=== PATIENT | female | born 1965 | race Native Hawaiian/Other Pacific Islander ===

== ENCOUNTER 2018-08-14 10:24 | Emergency (ER) | payer OTHER ==
[2018-08-14 10:50] VITALS: TEMP 97.9
[2018-08-14] MEDS ORDERED: POVIDONE IODINE 10 % 15 ML UD TOP ONE (11:11)
[2018-08-14] MEDS ORDERED: TETANUS,DIPHTHERIA,PERTUSSIS 1 EA SYG IM ONE (11:11)
[2018-08-14] MEDS ORDERED: ACETAMINOPHEN 325 MG TAB PO ONE (11:11)
--- NOTE | 2018-08-14 11:16 | ED.PDOC ---
History of Present Illness - General Chief Complaint: Bite: Animal/Insect/Human Stated Complaint: cat bite to RH Time Seen by Provider: 08/14/18 11:11 Source: patient Exam Limitations: no limitations - History of Present Illness Initial Comments: Patient presents with a cat bite to the right 5th digit. She took her cat to the vet to be euthanized and the vet asked her if she would like to hold the cat one more time while the euthanizing medication went in. The cat bit her during the process. The cat was an outdoor cat. The patient complains of pain to the right 5th digit and multiple punctate lesions. No other injuries nor complaints. Timing/Duration: 1/2 hour Severity: mild Improving Factors: nothing Worsening Factors: nothing Associated Symptoms: denies symptoms Allergies/Adverse Reactions: Allergies NO KNOWN ALLERGY Allergy (Verified 08/14/18 10:39) Home Medications: Ambulatory Orders Amoxicillin & Pot Clavulanate [Augmentin Tab] 875 mg PO BID #14 tab 08/14/18 Review of Systems - Review of Systems Constitutional: States: no symptoms reported EENTM: States: no symptoms reported Respiratory: States: no symptoms reported Cardiology: States: no symptoms reported Gastrointestinal/Abdominal: States: no symptoms reported Genitourinary: States: no symptoms reported Musculoskeletal: States: no symptoms reported Skin: States: see HPI Neurological: States: no symptoms reported Endocrine: States: no symptoms reported Hematologic/Lymphatic: States: no symptoms reported Past Medical History (General) - Patient Medical History Hx Stroke: No Hx Cardiac Disorders: No Hx Diabetes: No Surgical History: Hysterectomy Family Medical History - Family History Mother Family History: No Known Physical Exam - Physical Exam General Appearance: Alert Respiratory: lungs clear, normal breath sounds Cardiovascular/Chest: normal peripheral pulses, regular rate, rhythm, no edema Gastrointestinal/Abdominal: normal bowel sounds, non tender, soft Extremity: other - 4 punctate lesions on the PIP area of the right 5th digit. Hemostatic. 5/5 strength to flexion/extension/adduction/abduction of the right 5th digit. Neurologic: no motor/sensory deficits Progress - Progress Progress: 08/14/18 11:18 The vet was notified to send the cat's head off for rabies testing which is according to guidelines for animals that cannot be observed for 10 days. Animal control was contacted to take a report and further document the plan. The vet's name is Izabel Friend. Janie Osorio is the local rabies nuisance wildlife control operator and will be notified of the results of the cat's testing. She will be notify the patient and the hospital. 08/14/18 11:28 Wound was cleaned and patient prescribed augmentin due to the fact it is a bite that is high risk for infection, especially Bartonella. Departure - Departure Clinical Impression: Cat bite involving extremity Disposition: Discharge to Home or Self Care Condition: Good Departure Forms: ED Discharge - Pt. Copy, Patient Portal Self Enrollment Diet: resume usual diet Activity: increase activity as tolerated Prescriptions: Amoxicillin & Pot Clavulanate [Augmentin Tab] 875 mg PO BID #14 tab Home Medications: Ambulatory Orders Amoxicillin & Pot Clavulanate [Augmentin Tab] 875 mg PO BID #14 tab 08/14/18 Additional Instructions: Keep wound cleaned. Take the antibiotic as prescribed for the full course. Contact your vet on Friday to find out the rabies status of the cat. If the cat had rabies, return to the E.R. immediately.
[2018-08-14] MEDS ORDERED: NEOMYCIN-BACITRACIN-POLYMYXIN 0.9 GM UD TOP ONE (11:38)
[2018-08-14 11:54] VITALS: BP 145/93; O2SAT 100
== END 2018-08-14 11:54 | disposition home or self-care (01) ==
LOC: ER 10:24
DX: S61.256A Open bite of right little finger without damage to nail, initial encounter (principal); Y93.89 Activity, other specified; Z23 Encounter for immunization

== ENCOUNTER → 2019-02-23 | Outpatient (CLI) | payer OTHER ==
--- NOTE | 2019-02-25 17:14 | MAM ---
EXAM DESCRIPTION: 3D Screening BILATERAL : Digital Mammography. CLINICAL HISTORY: 53 years Female ANNUAL SCREENING . No complaints. No personal or family history of breast cancer. Childbirth. Postmenopausal 7 years. No HRT. Lifetime risk of developing breast cancer (Tyrer-Cuzick model)(%): Not calculated COMPARISON: Bilateral digital 2-D screening mammography 10/01/2016. TECHNIQUE: Bilateral CC and MLO projection full-field images, digital tomosynthesis mammographic technique. Bilateral digital 2-D full-field MLO images. CAD not available for tomosynthesis or 2-D images. FINDINGS: The breast parenchymal density pattern is: Almost entirely fatty. No skin thickening or nipple retraction. Small solitary microcalcifications bilaterally. No new focal, stellate mass or density, focal asymmetry , and no suspicious microcalcifications bilaterally. Stable mammograms compared to prior study. Taking into account, differences in mammographic technique. IMPRESSION: Benign exam. BIRAD CATEGORY: 2 BENIGN FINDINGS. RECOMMENDATIONS: FOLLOW UP: Routine digital bilateral mammographic screening, one year interval from February 2019. Written communication explaining the IMPRESSION and follow-up, will be mailed to the patient and referring health care provider. According to the [employer], yearly mammograms are recommended starting at age 40 and continuing as long as a woman is in good health. Any breast change noted on a breast self-exam should be reported promptly to the patient's healthcare provider. Breast MRI is recommended for women with an approximately 20-25% or greater lifetime risk of breast cancer, including women with a strong family history of breast or ovarian cancer and women who have been treated for Hodgkin's disease. A negative mammographic report should not delay tissue diagnosis in patients with significant clinical history or physical findings. Extremely dense breast tissue limits the sensitivity of digital mammography. Electronically signed by: Pérez Malone MD 02/25/2019 5:12 PM CDT
== END ==
LOC: MAMMO 10:13
PROVIDERS: ATTEND Obstetrics & Gynecology
DX: Z12.31 Encounter for screening mammogram for malignant neoplasm of breast (principal)

== ENCOUNTER → 2020-11-24 | Outpatient (CLI) | payer OTHER | LOC: RESP 15:43 | PROVIDERS: ATTEND Family Medicine | DX: R00.2 Palpitations (principal) ==